=== PATIENT | male | born 1995 | race African-American/Black ===

== ENCOUNTER 2020-08-01 14:50 | Emergency (ER) | payer SELFPAY ==
[2020-08-01 20:47] LABS: SARS-CoV-2 PCR by NAA Not Detected (NotDetected)
== END 2020-08-01 15:26 | disposition home or self-care (01) ==
LOC: ERS 14:50
DX: R11.0 Nausea (principal); R42 Dizziness and giddiness; Z20.822 Contact with and (suspected) exposure to COVID-19; F17.210 Nicotine dependence, cigarettes, uncomplicated; I10 Essential (primary) hypertension
CPT/HCPCS: 99283; U0003; U0005